=== PATIENT | male | born 1955 | race Caucasian/White ===

== ENCOUNTER → 2022-07-11 08:34 | Outpatient (CLI) | payer MEDICARE, BC, SELFPAY ==
--- NOTE | 2022-07-11 | DI.US.S_ITS ---
PROCEDURE: US RENAL COMPLETE INDICATIONS: SERUM CREATININE RAISED TECHNIQUE: Real-time scanning was performed of the kidneys and bladder, with image documentation. COMPARISON: [facility], US, US ABD AORTA ANEURYSM SCREEN, 07/11/2022, 9:43. FINDINGS: Kidneys: Kidneys are normal in size. Right kidney measures 16.2 cm long; left kidney measures and 26.6 cm long. Right renal cortical thickness is 1.6 cm; left renal cortical thickness is 1.4 cm. Multiple large cysts are present bilaterally. Largest on the right measures 8.4 x 7.8 cm. There is a complex cyst in the lower pole measuring 4.0 x 5.7 cm. Largest cyst on the left measures 17.1 x 10.4 cm. . Bladder: Pre-void bladder volume is 67 mL. Post-void residual is 8 mL. Pre-void images demonstrate no intraluminal masses or stones. On pre-void images, neither ureteral jets are noted with color Doppler interrogation. (Of note, ureteral jets may not be detectable in up to 25% of cases due to insufficient differences in specific gravity between ureteral and bladder urine). Bladder wall fullness possible nodularity measures 1.6 x 2.1 x 1.7 cm. Prosthetic hypertrophy measures 5.1 x 5.8 cm Miscellaneous: No free pelvic fluid. IMPRESSION: 1. Polycystic kidney disease. 2. Bladder wall nodularity. Consider either direct visualization or follow-up CT IVP for further evaluation. 3. Prostatic hypertrophy Approved by: Josesito Nice M.D. on 07/11/2022 at 15:05
--- NOTE | 2022-07-11 | DI.ECHO.S_ITS ---
[facility]---------+ [facility] +---------+ : : [address] : : : : [id number] : : : : Phone: [phone]+ Echocardiogram Report + + :Name: NITO SAHU Study Date: 07/11/2022 Height: 77 in : [facility] Reading[facility] Weight: 242 lb : : Gender: Male BSA: 2.4 m2 : :: 1955 Age: 66 yrs BP: 113/74 mmHg: :Reason For Study: Aortic, Ascending Aneurysm : :Ordering Physician: TARA, : :NUZHAT Cotton Performed By: Jake Garcia : :Referring: NUZHAT PACHECO : + + Interpretation Summary The ejection fraction is estimated to be 60-65%. There are no obvious focal wall motion abnormalities noted but poor endocardial definition reduces the sensitivity for the detection of such. The aortic root is mildly dilated. The ascending aorta is mildly enlarged. Procedure: A two-dimensional transthoracic echocardiogram with color flow and Doppler was performed. The study quality was technically adequate. There is no prior echocardiogram noted for this patient. The patient was in normal sinus rhythm during the exam. Left Ventricle: The left ventricle is normal in size and wall thickness. Left ventricular systolic function is normal. The ejection fraction is estimated to be 60-65%. There are no obvious focal wall motion abnormalities noted but poor endocardial definition reduces the sensitivity for the detection of such. Diastolic function could not be accurately assessed due to unobtainable data. Right Ventricle: The right ventricle is normal in size and function. Atria: Both atria are normal in size. The interatrial septum grossly appears intact with no obvious evidence for an atrial septal defect. Mitral Valve: The mitral valve is normal in structure and function. There is trace mitral regurgitation. Aortic Valve: The aortic valve is normal in structure and function. No aortic regurgitation is present. Tricuspid Valve: The tricuspid valve is normal in structure and function. There is a trace or physiologic amount of tricuspid regurgitation. Pulmonary artery pressures cannot be estimated because of the lack of a measurable TR jet velocity. Pulmonic Valve: The pulmonic valve is normal in structure and function. There is a trace or physiologic amount of pulmonic regurgitation. Great Vessels: The aortic root is mildly dilated. The ascending aorta is mildly enlarged. The IVC is of normal diameter and collapses greater than 50% with a sniff. This suggests a low right atrial pressure of 3 mm Hg. Pericardium/ Pleura There is no pericardial effusion. There is no pleural effusion. MMode/2D Measurements & Calculations LVIDd: 4.0 cm LVOT diam: 2.3 cm LVIDs: 2.8 cm Ao root diam: 4.1 cm FS: 30.0 % asc Aorta Diam: 4.1 cm IVSd: 1.1 cm LVPWd: 0.90 cm LV burden. diameter/BSA (cm/m^2): 1.6 LV sys. diameter/BSA (cm/m^2): 1.2 LA dimension: 3.3 cm RA long axis: 5.9 cm LA A2 area: 23.2 cm2 LA A4 area: 18.8 cm2 LA length (vol): 6.1 cm LA vol: 60.5 ml LA vol index: 24.9 ml/m2 TAPSE_phl: 2.4 cm Doppler Measurements & Calculations Ao V2 max: 181.0 cm/sec LVOT Max Tej: 159.0 cm/sec Ao V2 mean: 118.0 cm/sec LV V1 max P.1 mmHg Ao max P.0 mmHg LV V1 VTI: 28.8 cm Ao mean P.0 mmHg GABY(I,D): 3.8 cm2 Ao V2 VTI: 31.4 cm GABY(V,D): 3.6 cm2 sev ratio: 0.92 GABY indexed to BSA (cm^2/m^2): 1.6 MV E max tej: 68.4 cm/sec SV(LVOT): 119.7 ml MV A max tej: 99.0 cm/sec MV E/A: 0.69 Med Peak E' Tej: 6.7 cm/sec E/E' med: 10.3 Lat Peak E' Tej: 8.4 cm/sec E/E' lat: 8.1 E/e' average: 9.2 MV dec time: 0.35 sec AV VR_phl: 0.88 MV P1/2t-pr_phl: 101.0 msec GABY(VTI)/BSA_phl: 1.6 Reading Physician:02:22 PM
--- NOTE | 2022-07-11 | DI.US.S_ITS ---
PROCEDURE: US ABD AORTA ANEURYSM SCREEN INDICATIONS: Cardiac murmur, unspecified TECHNIQUE: Real time scanning was performed of the aorta and iliac arteries, with image documentation. COMPARISON: None. FINDINGS: Aorta: Proximal aortic diameter measures 2.6 cm. Mid-aorta measures 2.2 cm. Distal aortic diameter is 1.9 cm. Iliac arteries: Right common iliac artery measures 1.0 cm. Left common iliac artery measures 1.1 cm. IMPRESSION: Limited study due to overlying bowel gas. Aortic abdominal ectasia. 5 year sonographic surveillance recommended. Dictated by: Roxana Rutherford M.D. on 07/11/2022 at 10:44 Approved by: Roxana Rutherford M.D. on 07/11/2022 at 10:45
== END ==
PROVIDERS: PCP Family Medicine; Referring Provider Family Medicine; Visit Provider Family Medicine
DX: Z13.6 Encounter for screening for cardiovascular disorders (principal); I77.811 Abdominal aortic ectasia; I77.89 Other specified disorders of arteries and arterioles; R79.89 Other specified abnormal findings of blood chemistry; R01.1 Cardiac murmur, unspecified; Q61.3 Polycystic kidney, unspecified; N40.0 Benign prostatic hyperplasia without lower urinary tract symptoms
CPT/HCPCS: 76706; 76770; 93306

== ENCOUNTER → 2024-03-22 09:52 | Outpatient (CLI) | payer MEDICARE, BC, SELFPAY ==
--- NOTE | 2024-03-22 09:54 | DI.US.S_ITS ---
PROCEDURE: US EXTREMITY NONVASC LOWER LT INDICATIONS: LEFT FOOT SMALL MASS TECHNIQUE: Real-time scanning was performed of the medial plantar left foot , with image documentation. COMPARISON: None. FINDINGS: At the patient's area of palpable concern, in the medial plantar left foot, there is a 0.6 x 0.3 x 0.7 cm well-circumscribed, hyperechoic lesion deep to the subcutaneous fat, nonspecific in appearance. No internal vascularity. IMPRESSION: 0.7 cm lesion deep to the subcutaneous fat in the left medial plantar left foot, nonspecific in appearance. Differential diagnosis includes, but not limited to, lipoma or plantar fasciitis given location. Recommend further evaluation with MR foot with intravenous contrast. Dictated by: Naomi Franks M.D. on 03/22/2024 at 11:52 Approved by: Naomi Franks M.D. on 03/22/2024 at 11:57
--- NOTE | 2024-03-22 09:54 | DI.US.S_ITS ---
PROCEDURE: US RENAL COMPLETE INDICATIONS: PROSTATIC HYPERTROPHY TECHNIQUE: Real-time scanning was performed of the kidneys and bladder, with image documentation. COMPARISON: [facility], , US RENAL COMPLETE, 07/11/2022, 9:51. FINDINGS: Kidneys: No discrete renal parenchyma is visualized sonographically. There are multiple large simple appearing cysts within the bilateral kidneys. The largest on the right measures 8.4 x 8.0 x 7.6 cm and the largest on the left measures 8.9 x 7.5 x 7.8 cm. Bladder: The patient voided prior to the procedure. Pre-void images demonstrate no intraluminal masses or stones. On pre-void images, neither ureteral jets are noted with color Doppler interrogation. (Of note, ureteral jets may not be detectable in up to 25% of cases due to insufficient differences in specific gravity between ureteral and bladder urine). Miscellaneous: No free pelvic fluid. IMPRESSION: 1. Multiple large simple appearing bilateral renal cysts with poor characterization of any normal appearing renal parenchyma. Dictated by: Roxana Rutherford M.D. on 03/22/2024 at 11:41 Approved by: Roxana Rutherford M.D. on 03/22/2024 at 11:43
== END ==
PROVIDERS: PCP Family Medicine; Referring Provider Family Medicine; Visit Provider Family Medicine
DX: N40.0 Benign prostatic hyperplasia without lower urinary tract symptoms (principal); R22.42 Localized swelling, mass and lump, left lower limb; N28.1 Cyst of kidney, acquired
CPT/HCPCS: 76770; 76882